=== PATIENT | female | born 1965 | race American Indian/Alaskan Native ===

== ENCOUNTER 2020-12-17 08:33 | Emergency (ER) | payer SELFPAY ==
--- NOTE | 2020-12-17 09:26 | Event Note ---
ED Screening Note ED Screening Note: co cp or pressure epigastric and moves upward-- to chest saw pcp who did ekg say it was ok dx with uti lab work was done yesterday they sent her here for abn labs - she can not tell me which one was high she thinks pancrease lab rx gerd med pmh gerd psh none menopausal no dysuria This initial assessment/diagnostic orders/clinical plan/treatment(s) is/are subject to change based on patients health status, clinical progression and re- assessment by fellow clinical providers in the ED. Further treatment and workup at subsequent clinical providers discretion. Patient/guardian urged not to elope from the ED as their condition may be serious if not clinically assessed and managed. Initial orders include: repeat xray ekg
[2020-12-17 10:13] LABS: Basophils # (Auto) 0.1 K/mm3 (0.0-0.1); Basophils % (Auto) 1.3 % (0.0-1.8); Eosinophils % (Auto) 0.8 % (0.0-4.3); Hematocrit 38.9 % (30.3-42.9); Hemoglobin 12.4 gm/dl (10.1-14.3); Lymphocytes # (Auto) 1.1 K/mm3 (1.2-5.4); Lymphocytes % (Auto) 25.3 % (13.4-35.0); Mean Corpuscular HGB Conc 32 % (30-34); Mean Corpuscular Volume 84 fl (79-97); Monocytes # (Auto) 0.4 K/mm3 (0.0-0.8); Monocytes % (Auto) 8.8 % (0.0-7.3); Platelet Count 267 K/mm3 (140-440); Red Blood Count 4.66 M/mm3 (3.65-5.03); Red Cell Distribution Width 14.1 % (13.2-15.2)
[2020-12-17 10:38] LABS: Alanine Aminotransferase 12 units/L (7-56); Albumin 4.6 g/dL (3.9-5); Blood Urea Nitrogen 14 mg/dL (7-17); Calcium 9.6 mg/dL (8.4-10.2); Hemolysis Index 0
[2020-12-17 10:45] LABS: BUN/Creatinine Ratio 20
--- NOTE | 2020-12-17 10:45 | XRay Report ---
CHEST 2 VIEWS INDICATION: Chest Pain. COMPARISON: None FINDINGS: Support devices: None. Heart: Within normal limits. Lungs/pleura: No acute air space or interstitial disease. No pneumothorax. Additional findings: Mild thoracolumbar scoliosis. IMPRESSION: No acute findings. Signer Name: Ryan Beasley Jr, MD Signed: 12/17/2020 10:40 AM Workstation Name: [id number]
[2020-12-17] MEDS ORDERED: SUCRALFATE 1 GM/10 ML ORAL LIQD PO ONE (13:29)
[2020-12-17] MEDS ORDERED: PANTOPRAZOLE 40 MG TAB PO ONE (13:29)
[2020-12-17] MEDS ORDERED: ACETAMINOPHEN 325 MG TAB PO ONE (13:29)
--- NOTE | 2020-12-17 13:29 | Emergency Department Report ---
ED General Adult HPI - General Chief complaint: Chest Pain Stated complaint: CHEST DISCOMFORT Time Seen by Provider: 12/17/20 09:24 Source: patient, RN notes reviewed Mode of arrival: Ambulatory Limitations: No Limitations - History of Present Illness Initial comments: The patient was evaluated in the emergency department for symptoms described in the history of present illness. He/she was evaluated in the context of the global COVID-19 pandemic, which necessitated consideration that the patient might be at risk for infection with the virus that causes COVID-19. Institutional protocols and algorithms that pertain to the evaluation of patients at risk for COVID-19 are in a state of rapid change based on information released by regulatory bodies including the CDC and federal and state organizations. These policies and algorithms were followed during the patient's care in the emergency department. Please note that these policies, procedures and recommendations changed on a rapid basis. During the history and physical examination, I am chaperoned by nurse Corinna Black The patient is a 55-year-old female. She is not known to myself previously. She has no chronic medical conditions that she is aware of. She was referred to the emergency room by her primary care doctor for 2 weeks of atypical chest pressure. She describes a few weeks of lower abdominal cramping, that is occasionally associated with chest wall pressure, which sometimes moves to the left shoulder, but not the back, neck or arms. She denies vomiting, diaphore sis, exertional shortness of breath or recent aspirin consumption. The pain increases with palpation, and occasionally eating heavy and spicy foods. The patient denies leg pain, leg swelling, travel, surgery, oral contraceptive use, personal/family history of DVT, pulmonary embolism, as well as of ischemic heart disease. She currently has no urinary symptoms. She denies Covid symptomatology. She states that she feels back to her baseline at this time, but occasionally when the pressure comes, she feels "very anxious." Patient states that she feels like she is at her baseline at the moment. -: Gradual, week(s) Location: chest, abdomen Severity scale (0 -10): 6 Quality: aching Consistency: intermittent Improves with: none Worsens with: eating - Related Data Previous Rx's Medication Instructions Recorded Last Taken Type Acetaminophen [Non-Aspirin Extra 500 mg PO Q6HR PRN #30 tablet 12/17/20 Unknown Rx Strength] Aspirin [Aspirin BABY CHEW TAB] 81 mg PO QDAY #30 tab.chew 12/17/20 Unknown Rx Pantoprazole [Protonix TAB] 20 mg PO QDAY #30 tablet. 12/17/20 Unknown Rx Allergies Allergy/AdvReac Type Severity Reaction Status Date / Time No Known Allergies Allergy Unverified 12/17/20 08:55 ED Review of Systems ROS: Stated complaint: CHEST DISCOMFORT Other details as noted in HPI Constitutional: other (Denies loss of taste and smell). denies: fever, malaise, weakness Eyes: denies: eye discharge Respiratory: denies: cough Cardiovascular: chest pain Gastrointestinal: abdominal pain. denies: nausea Genitourinary: denies: dysuria Musculoskeletal: denies: myalgia Neurological: denies: weakness Psychiatric: anxiety Hematological/Lymphatic: denies: easy bleeding ED Past Medical Hx - Past Medical History Previous Medical History?: No - Surgical History Past Surgical History?: No - Medications Home Medications: Home Medications Medication Instructions Recorded Confirmed Last Taken Type Acetaminophen [Non-Aspirin Extra 500 mg PO Q6HR PRN #30 tablet 12/17/20 Unknown Rx Strength] Aspirin [Aspirin BABY CHEW TAB] 81 mg PO QDAY #30 tab.chew 12/17/20 Unknown Rx Pantoprazole [Protonix TAB] 20 mg PO QDAY #30 tablet. 12/17/20 Unknown Rx ED Physical Exam - General Limitations: No Limitations General appearance: alert, in no apparent distress - Head Head exam: Present: atraumatic, normocephalic - Eye Eye exam: Present: normal appearance, EOMI. Absent: nystagmus - ENT ENT exam: Present: normal exam, normal orophraynx, mucous membranes moist, normal external ear exam - Neck Neck exam: Present: normal inspection, full ROM. Absent: tenderness, meningismus - Respiratory Respiratory exam: Present: normal lung sounds bilaterally. Absent: respiratory distress, wheezes, rales, rhonchi, stridor, chest wall tenderness - Cardiovascular Cardiovascular Exam: Present: regular rate, normal rhythm, normal heart sounds. Absent: bradycardia, tachycardia, irregular rhythm, systolic murmur, diastolic murmur, rubs, gallop - GI/Abdominal GI/Abdominal exam: Present: soft. Absent: distended, tenderness, guarding, rebound, rigid, pulsatile mass - Extremities Exam Extremities exam: Present: normal inspection, full ROM, other (2+ pulses noted in the bilateral upper and lower extremities. There is no palpable cord. negative Homans sign. Muscular compartments are soft. The pelvis is stable.). Absent: pedal edema, calf tenderness - Back Exam Back exam: Present: normal inspection, full ROM. Absent: tenderness, CVA tenderness (R), CVA tenderness (L), paraspinal tenderness, vertebral tenderness - Neurological Exam Neurological exam: Present: alert, normal gait, other (No facial droop. Tongue midline. Extraocular movements intact bilaterally. Facial sensation intact to light touch in V1, V2, V3 distribution bilaterally. 5 and a 5 strength in 4 extremities. Sensation intact to light touch in 4 extremities.). Absent: motor sensory deficit - Psychiatric Psychiatric exam: Present: normal affect, normal mood - Skin Skin exam: Present: warm, dry, intact, normal color. Absent: rash ED Course Vital Signs 12/17/20 08:55 Temperature 98.5 F Pulse Rate 100 H Respiratory 18 Rate Blood Pressure 164/97 [Right] O2 Sat by Pulse 100 Oximetry - Pulse Oximetry Interpretation Digit-Finger Initial Pulse Oximetry Readin O2 Sat by Pulse Oximetry: 98 Actions Taken: none ED Medical Decision Making - Lab Data Result diagrams: 12/17/20 09:41 12/17/20 09:41 Vital Signs 12/17/20 08:55 Temperature 98.5 F Pulse Rate 100 H Respiratory 18 Rate Blood Pressure 164/97 [Right] O2 Sat by Pulse 100 Oximetry Lab Results 12/17/20 12/17/20 12/17/20 Range/Units 09:41 09:41 11:06 WBC 4.5 (4.5-11.0) K/mm3 RBC 4.66 (3.65-5.03) M/mm3 Hgb 12.4 (10.1-14.3) gm/dl Hct 38.9 (30.3-42.9) % MCV 84 (79-97) fl MCH 27 L (28-32) pg MCHC 32 (30-34) % RDW 14.1 (13.2-15.2) % Plt Count 267 (140-440) K/mm3 Lymph % (Auto) 25.3 (13.4-35.0) % [place] % (Auto) 8.8 H (0.0-7.3) % Eos % (Auto) 0.8 (0.0-4.3) % Baso % (Auto) 1.3 (0.0-1.8) % Lymph # (Auto) 1.1 L (1.2-5.4) K/mm3 [place] # (Auto) 0.4 (0.0-0.8) K/mm3 Eos # (Auto) 0.0 (0.0-0.4) K/mm3 Baso # (Auto) 0.1 (0.0-0.1) K/mm3 Seg Neutrophils % 63.8 (40.0-70.0) % Seg Neutrophils # 2.8 (1.8-7.7) K/mm3 Sodium 140 (137-145) mmol/L Potassium 4.7 (3.6-5.0) mmol/L Chloride 103.2 (98-107) mmol/L Carbon Dioxide 26 (22-30) mmol/L Anion Gap 16 mmol/L BUN 14 (7-17) mg/dL Creatinine 0.7 (0.6-1.2) mg/dL Estimated GFR > 60 ml/min BUN/Creatinine Ratio 20 % Glucose 96 (65-100) mg/dL Calcium 9.6 (8.4-10.2) mg/dL Total Bilirubin 0.40 (0.1-1.2) mg/dL AST 17 (5-40) units/L ALT 12 (7-56) units/L Alkaline Phosphatase 90 (35-129) units/L Troponin T < 0.010 (0.00-0.029) ng/mL Total Protein 8.3 H (6.3-8.2) g/dL Albumin 4.6 (3.9-5) g/dL Albumin/Globulin Ratio 1.2 % Lipase 16 (13-60) units/L - EKG Data -: EKG Interpreted by Ms EKG shows normal: sinus rhythm Rate: normal - EKG Data When compared to previous EKG there are: previous EKG unavailable 12/17/20 13:46 EKG interpreted at 09: 0 8 AM Sinus rhythm, 87 bpm, normal axis, normal intervals, left ventricular hypertrophy. Not a STEMI. There is no prior for comparison. - Radiology Data Radiology results: pending, report reviewed, image reviewed [facility] [address] [place] [address] XRay Report Signed Patient: SACHA GASTON MR#: [id number] : 1965 Acct:[id number] Age/Sex: 55 / F ADM Date: 12/17/20 Loc: ED Attending Dr: Ordering Physician: RENEE CABA Date of Service: 12/17/20 Procedure(s): XR chest routine 2V Accession Number(s): [id number] cc: RENEE CABA Fluoro Time In Minutes: CHEST 2 VIEWS INDICATION: Chest Pain. COMPARISON: None FINDINGS: Support devices: None. Heart: Within normal limits. Lungs/pleura: No acute air space or interstitial disease. No pneumothorax. Additional findings: Mild thoracolumbar scoliosis. IMPRESSION: No acute findings. Signer Name: Ryan Beasley Jr, MD Signed: 12/17/2020 10:40 AM Workstation Name: [id number] Transcribed By: TTR Dictated By: RYAN BEASLEY JR, MD Electronically Authenticated By: RAYN BEASLEY JR, MD Signed Date/Time: 12/17/20 104 DD/ 1040 - Medical Decision Making Differential diagnosis, including but not limited to: GERD, gastritis, hiatal hernia, costochondritis assessment and plan: 55-year-old female, with heart rate of 90 bpm at this moment, who is not currently tachycardic, tachypneic or hypoxic, who denies DVT and pulmonary embolism risk factors, who is low risk by Wells criteria for pulmonary embolism, with negative troponin x1 in the context of 2 weeks of symptoms, unremarkable EKG, no pulsatile abdominal mass, equal pulses in the upper and lower extremities, unremarkable x-ray of the chest. Patient at low risk for major adverse cardiac event. Counseled patient of same. Discussed diet, lifestyle modifications, avoidance of NSAIDs. Patient should follow-up with an outpatient primary care doctor or polymer chemist for consideration for outpatient stress test/outpatient cardiac risk ratification. Have discussed this plan of care with the patient, who verbalized understanding to same. All questions answered. At the time of discharge, patient smiling, happy, pleasant, in no acute distress, and reassured with plan of care. Critical care attestation.: If time is entered above; I have spent that time in minutes in the direct care of this critically ill patient, excluding procedure time. ED Disposition Clinical Impression: Hx of chest pain Disposition: DC-01 TO HOME OR SELFCARE Is pt being admited?: No Does the pt Need Aspirin: No Condition: Good Instructions: Nonspecific Chest Pain, Adult Additional Instructions: Avoid consumption of heavy and spicy foods. Avoid consumption of Motrin, ibuprofen, Naprosyn, Aleve, alcohol, tobacco and smoke products. Take the medications as needed and directed, and please follow-up with a polymer chemist within the next 3 to 5 days. [facility] is a local cardiology practice. Dr. Dumont is a local polymer chemist. Please return to the emergency room right away with new pain, worsened pain, migration of pain, projectile vomiting, change in mental status, confusion, inability to tolerate liquid feeds, new, worsened or different symptoms not present on the initial emergency room evaluation. Referrals: [facility] [Other] - 3-5 Days JERMAINE DUMONT MD [Staff Physician] - 3-5 Days [facility] [Provider Group] - 3-5 Days Heart Score - HEART Score History: Slightly suspicious EKG: Non-specific Age: 45-65 Risk factors: 1-2 risk factors Troponin: < normal limit HEART Score: 3 - EKG Read Time Time EKG Completed: 09:08 EKG Read Time: 09:08 - Critical Actions Critical Actions: 0-3 pts:0.9-1.7%risk of adverse cardiac event.Candidate for discharge
[2020-12-17 14:26] VITALS: BP 160/98
--- NOTE | 2020-12-20 10:34 | Electrocardiograph Report ---
[facility] Test Date: 2020-12-17 Test Time: 09:08:18 Pat Name: SACHA GASTON Department: Room: Gender: F Orthopedically Impaired Teacher: KYLIE : 1965 Requested By: RENEE CABA Order Number: [id number] Reading MD: Vick Frey Measurements Intervals [place] Rate: 87 P: 81 KS: 141 QRS: 69 QRSD: 73 T: 60 QT: 358 QTc: 430 Interpretive Statements Sinus rhythm No previous ECG available for comparison Electronically Signed On 12-20-2020 10:33:41 EDT by Vick Frey
== END 2020-12-17 14:25 | disposition home or self-care (01) ==
LOC: ED 08:33
DX: R07.89 Other chest pain (principal); Z79.899 Other long term (current) drug therapy
CPT/HCPCS: 36415; 71046; 80053; 83690; 84484; 85025; 93005; 99283

== ENCOUNTER 2021-12-13 10:06 | Emergency (ER) | payer SELFPAY ==
[2021-12-13 10:36] VITALS: BP 144/86
--- NOTE | 2021-12-13 11:08 | Emergency Department Report ---
ED General Adult HPI - General Chief complaint: Medical Clearance Stated complaint: SWALLOWED BLEACH PUI?: No Time Seen by Provider: 12/13/21 11:05 Source: patient Mode of arrival: Ambulatory Limitations: No Limitations - History of Present Illness Initial comments: 56 yo comes to ER p accidently ingesting bleach at home. Once she realized it was dilated bleach cleaning water she spit it out. abc intact vss no complaints -: Sudden, hour(s) Associated Symptoms: denies other symptoms Treatments Prior to Arrival: none - Related Data Previous Rx's Medication Instructions Recorded Last Taken Type Acetaminophen [Non-Aspirin Extra 500 mg PO Q6HR PRN #30 tablet 12/17/20 Unknown Rx Strength] Aspirin [Aspirin BABY CHEW TAB] 81 mg PO QDAY #30 tab.chew 12/17/20 Unknown Rx Pantoprazole [Protonix TAB] 20 mg PO QDAY #30 tablet. 12/17/20 Unknown Rx Allergies Allergy/AdvReac Type Severity Reaction Status Date / Time No Known Allergies Allergy Unverified 12/17/20 08:55 ED Review of Systems ROS: Stated complaint: SWALLOWED BLEACH Other details as noted in HPI Comment: All other systems reviewed and negative ED Past Medical Hx - Past Medical History Previous Medical History?: No - Family History Family history: no significant - Social History Smoking Status: Never Smoker Substance Use Type: None - Medications Home Medications: Home Medications Medication Instructions Recorded Confirmed Last Taken Type Acetaminophen [Non-Aspirin Extra 500 mg PO Q6HR PRN #30 tablet 12/17/20 Unknown Rx Strength] Aspirin [Aspirin BABY CHEW TAB] 81 mg PO QDAY #30 tab.chew 12/17/20 Unknown Rx Pantoprazole [Protonix TAB] 20 mg PO QDAY #30 tablet. 12/17/20 Unknown Rx ED Physical Exam - General Limitations: No Limitations General appearance: alert, in no apparent distress - Head Head exam: Present: atraumatic, normocephalic - Eye Eye exam: Present: normal appearance - ENT ENT exam: Present: mucous membranes moist - Neck Neck exam: Present: normal inspection - Respiratory Respiratory exam: Present: normal lung sounds bilaterally. Absent: respiratory distress - Cardiovascular Cardiovascular Exam: Present: regular rate, normal rhythm. Absent: systolic murmur, diastolic murmur, rubs, gallop - GI/Abdominal GI/Abdominal exam: Present: soft, normal bowel sounds - Extremities Exam Extremities exam: Present: normal inspection - Back Exam Back exam: Present: normal inspection - Neurological Exam Neurological exam: Present: alert, oriented X3 - Psychiatric Psychiatric exam: Present: normal affect, normal mood - Skin Skin exam: Present: warm, dry, intact, normal color. Absent: rash ED Course Vital Signs 12/13/21 10:30 Temperature 97.9 F Pulse Rate 106 H Respiratory 14 Rate Blood Pressure 144/86 O2 Sat by Pulse 99 Oximetry ED Medical Decision Making - Medical Decision Making Vital Signs 12/13/21 10:30 Temperature 97.9 F Pulse Rate 106 H Respiratory 14 Rate Blood Pressure 144/86 O2 Sat by Pulse 99 Oximetry poison control called no intervention required dc home with dc plan of care- verbalizes understanding of plan of care - Differential Diagnosis bleach ingestion Critical care attestation.: If time is entered above; I have spent that time in minutes in the direct care of this critically ill patient, excluding procedure time. ED Disposition Clinical Impression: Ingestion of bleach Qualifiers: Encounter type: initial encounter Injury intent: accidental or unintentional Qualified Code(s): T54.91XA - Toxic effect of unspecified corrosive substance, accidental (unintentional), initial encounter Disposition: 01 HOME / SELF CARE / HOMELESS Is pt being admited?: No Does the pt Need Aspirin: No Condition: Stable Referrals: MAAME DOWELL MD [Primary Care Provider] - 3-5 Days Time of Disposition: 11:07
== END 2021-12-13 12:27 | disposition home or self-care (01) ==
LOC: ED 10:06
DX: T54.91XA Toxic effect of unspecified corrosive substance, accidental (unintentional), initial encounter (principal); Z79.899 Other long term (current) drug therapy; Y92.89 Other specified places as the place of occurrence of the external cause
CPT/HCPCS: 99283